=== PATIENT | female | born 1980 | race Caucasian/White ===

== ENCOUNTER 2021-12-21 09:19 | Outpatient (CLI) | payer MEDICARE, SELFPAY ==
--- NOTE | ~2021-12-21 | US_ITS ---
EXAMINATION: US OB <=14 wk fetus w TV DATE: 12/21/2021 10:17 INDICATION: Threatened during first trimester TECHNIQUE: Real-time pelvic ultrasound utilizing both a transvaginal and transabdominal probe was pe rformed. The interpreting radiologist was not present for the study. COMPARISON: None. FINDINGS: The uterus measures 14.0 x 7.3 x 10.2 cm. There is an intrauterine gestational sac. There is a singl e likely pole with 4 mm crown-rump length measurement, which correlates with an estimated gesta tional age of 6 weeks and 1 days. The mean sac diameter of 3.7 cm would correlate with an estimated g estational age of 9 weeks and 0 days. No evident heart heart motion identified on cine grayscal e imaging however M-mode Doppler images were not obtained. The right and left ovaries are not visuali zed. There is no free fluid in the pelvis. IMPRESSION: 1. Intrauterine gestational sac with 4 mm potential pole which would correlate with a gestation al age by ultrasound of 6 weeks 1 day. There is no discernible heart motion which along with th e relative discordant large size of the gestational sac raises concern for but is not diagnostic for failed and differential still includes a viable early . Recommend continued follow -up with serial beta-hCG levels and consider repeat ultrasound as clinically indicated. Reviewed, dictated and finalized at location B. IMPRESSION: 1. Intrauterine gestational sac with 4 mm potential pole which would gabe elate with a gestational age by ultrasound of 6 weeks 1 day. There is no discer nible heart motion which along with the relative discordant large size of the gestational sac raises concern for but is not diagnostic for failed pregna ncy and differential still includes a viable early . Recommend continu ed follow-up with serial beta-hCG levels and consider repeat ultrasound as clin ically indicated.
== END 2021-12-21 09:20 | disposition home or self-care (01) ==
LOC: ANHIMG 09:23
PROVIDERS: PCP Student in an Organized Health Care Education/Training Program; Visit Provider Student in an Organized Health Care Education/Training Program
DX: O20.0 Threatened abortion (principal)
CPT/HCPCS: 76801; 76817

== ENCOUNTER 2021-12-22 16:33 | Day surgery (SDC) | payer MEDICARE, SELFPAY ==
[2021-12-22] VITALS (7 sets, daily range): BP systolic 127–160; BP diastolic 60–96; PULSE 72–88; RESP 12–20; TEMP 36.7–36.9; O2SAT 98–100
--- NOTE | ~2021-12-22 | US_ITS ---
EXAMINATION: US OB <=14 wk fetus w TV INDICATION: vaginal bleeding TECHNIQUE: Sonography of the pelvis was performed by transabdominal and transvaginal techniques. COMPARISON: 12/21/2021. RESULT: Uterus: Orientation: Anteverted. 11.3 x 6.6 x 8 cm. Myometrium: homogeneous echogenicity. Heterogene ously echogenic, avascular material in the endometrial cavity of the lower uterine segment and the ce rvical canal. Gestation: - Intrauterine gestational sac: Not seen. - Embryo: Not seen. - Right ovary: Not visualized. Left ovary: Not visualized. Pelvis free fluid: None. IMPRESSION: failure. No intrauterine gestation or viable fetus detected. Heterogeneous material in the endometrial cavity of the lower uterine segment and cervix, likely representing clot and products of conception ( in progress). Ovaries not visualized. Reviewed, dictated and finalized at location K. IMPRESSION: failure. No intrauterine gestation or viable fetus detected. Heteroge neous material in the endometrial cavity of the lower uterine segment and cervi x, likely representing clot and products of conception ( in progress). Ovaries not visualized.
[2021-12-22 16:56] LABS: Basophils Percent Auto 0.3 % (0.2-1.2); Eosinophils Absolute Auto 0.2 K/mm3 (0-0.3); Eosinophils Percent Auto 1.1 % (0-4.4); Hematocrit 38.6 % (37.0-47.0); Hemoglobin 12.4 g/dL (12.0-15.0); Immature Granulocyte Absolute 0.07 K/mm3 (0.00-0.031); Immature Granulocyte Percent A 0.5 % (0-0.5); Lymphocytes Absolute Auto 3.36 K/mm3 (0.9-3.2); Lymphocytes Percent Auto 23.8 % (18.3-44.2); Mean Corpuscular HGB Conc 32.1 g/dl (32-36); Mean Corpuscular Hemoglobin 24.8 pg (26-34); Mean Corpuscular Volume 77.2 fl (80-100); Mean Platelet Volume 10.6 fl (7.4-10.4); Monocytes Absolute Auto 0.7 K/mm3 (0.1-0.6); Monocytes Percent Auto 4.7 % (2.6-8.5); Neutrophils Absolute Auto 9.8 K/mm3 (1.3-6.7); Neutrophils Percent Auto 69.6 % (45.5-73.1); Platelet Count Result 399 k/mm3 (150-375); Red Cell Distribution Width 15.7 % (11.5-14.5); White Blood Count 14.1 K/mm3 (4.5-10.0)
--- NOTE | 2021-12-22 17:44 | ED.FEMALEGU ---
HPI - Female Genitourinary General Chief complaint: Vaginal Bleeding Stated complaint: miscarriage, 12 weeks preg, abd pain Time Seen by Provider: 12/22/21 17:44 Source: patient Mode of arrival: ambulatory Limitations: no limitations History of Present Illness HPI Narrative: The patient is a 41-year-old female with a history of anemia, diabetes, G2, P1 currently 12 weeks dated by last menstrual period, presenting to the emergency department for evaluation of pelvic pain and vaginal bleeding. Patient reports onset of pelvic pain and vaginal bleeding 2 days ago. Patient reports heavy vaginal bleeding, significant cramping that is aching, severe in nature in the lower abdomen. Patient reports nausea, feeling slightly lightheaded in regards to the pain. Patient denies brisk bleeding, reports bleeding has been heavy throughout the day. Not soaking through a pad per hour, but at times she has intermittently bled through her pants. She reports mild lightheadedness. She denies chest pain or shortness of breath. She reports feeling quite anxious and nervous. Patient states that she did have an ultrasound yesterday that was done outpatient that showed that her dates did not correspond to her last menstrual period. Patient's EMPLOYMENT DIRECTOR is Dr. Stoddard. Related Data Home Medications Medication Instructions Recorded Confirmed calcium carbonate 200 mg calcium 200 mg PO BID 12/17/21 (500 mg) chewable tablet (Tums) vitamin-ferrous fumarate 1 cap PO DAILY 12/17/21 65 mg iron-folic acid 1 mg capsule Allergies Allergy/AdvReac Type Severity Reaction Status Date / Time No Known Allergies Allergy Verified 12/17/21 10:50 [facility] Past Medical History Medical History (Updated 12/22/21 @ 19:15 by Rachele Rosado MD) Anemia iron infusions in past Anxiety and depression Arthritis Asymptomatic varicose veins Bowel disease (~1979) Duplicated bowel cyst removed as baby 17 days old Diabetes Gestational diabetes History of PCOS Hyperlipidemia Morbid obesity with BMI of 50.0-59.9, adult Suppression of menstruation Surgical History Surgical History Delivery by section (02/01/13) primary c/s failure to dilate due to scar tissue on cervix History of gynecological procedure (~2000) cryo on cervix History of tonsillectomy History of uvulopalatopharyngoplasty S/P gastric sleeve procedure (~07/2020) Family History Family History Mother Hypertension High cholesterol Diabetes mellitus Other Breast cancer maternal aunt Grandparent Lung cancer paternal grandmother Acute myocardial infarction maternal grandmother Social History Social History (Updated 12/17/21 @ 11:01 by Mary Romero [facility]) Smoking status: Never smoker Alcohol intake: never Substance use: former Substance use type: marijuana Last use: 2020 Additional living arrangements comments: single Additional occupation/education comments: disabled Gender identity (if verbalized by the patient): Female Sexual Orientation (if Verbalized by the Patient): Straight or Heterosexual Exam Narrative: GENERAL: Awake, alert, conversant, uncomfortable appearing HEAD: Normocephalic, atraumatic. EYES: PERRLA and EOMI. ENT: Nares clear, no rhinorrhea or epistaxis. Mucous membranes moist. NECK: Supple. CHEST: No respiratory distress, breathing even and non labored HEART: Regular rate, sinus rhythm ABDOMEN: Obese, non distended, tender in the suprapubic area Pelvic exam: Labia majora and minora normal without lesions. Vagina with blood. No cervical motion tenderness. No adnexal tenderness or fullness bilaterally. EXTREMITIES: Normal range of motion. No edema. SKIN: Warm, dry, no rash. NEURO:No focal deficits. Alert and oriented x3 Course Vital Signs Vital signs: Vital Signs Temperatu
--- NOTE | 2021-12-22 17:44 | PC.NURSE ---
heart tones canceled as patient is experiencing large amount of bleeding and suspected misscarriage
[2021-12-22] MEDS: ONDANSETRON INJ 4 MG/2 ML VIAL (18:16)
[2021-12-22] MEDS: MORPHINE SULFATE (*CRX) 4 MG/ML INJ (18:16)
--- NOTE | 2021-12-22 18:34 | PM.IMHP ---
H&P: HPI History of Present Illness Date/Time: 12/22/21 18:34 41-year-old female 2 para 1001 presents to emergency room this evening with heavy vaginal bleeding cramping clotting and passing of tissue. Patient has continued to bleed and therefore we will proceed with suction curettage. She has had an ultrasound which showed nonviable prior to this bleeding, no repeat ultrasound has been performed today. Chief Complaint: Incomplete miscarriage Review of Systems Review of Systems: All systems reviewed & are unremarkable except as noted in HPI and below PMFSH Past Medical History Medical History Anemia iron infusions in past Anxiety and depression Arthritis Asymptomatic varicose veins Bowel disease (~1979) Duplicated bowel cyst removed as baby 17 days old Diabetes Gestational diabetes History of PCOS Suppression of menstruation Surgical History Surgical History Delivery by section (02/01/13) primary c/s failure to dilate due to scar tissue on cervix History of gynecological procedure (~2000) cryo on cervix History of tonsillectomy History of uvulopalatopharyngoplasty S/P gastric sleeve procedure (~07/2020) Family History Family History Mother Hypertension High cholesterol Diabetes mellitus Other Breast cancer maternal aunt Grandparent Lung cancer paternal grandmother Acute myocardial infarction maternal grandmother Social History Social History (Updated 12/17/21 @ 11:01 by Mary Romero [facility]) Smoking status: Never smoker Alcohol intake: never Substance use: former Substance use type: marijuana Last use: 2020 Additional living arrangements comments: single Additional occupation/education comments: disabled Gender identity (if verbalized by the patient): Female Sexual Orientation (if Verbalized by the Patient): Straight or Heterosexual Meds Home Medications and Allergies Home Medications Medication Instructions Recorded Confirmed Type calcium carbonate 200 mg calcium 200 mg PO BID 12/17/21 History (500 mg) chewable tablet (Tums) vitamin-ferrous fumarate 1 cap PO DAILY 12/17/21 History 65 mg iron-folic acid 1 mg capsule Allergies Allergy/AdvReac Type Severity Reaction Status Date / Time No Known Allergies Allergy Verified 12/17/21 10:50 Vital Signs Vital Signs - 24 hr 12/22/21 16:34 Temperature 98.1 F Pulse Rate 87 Respiratory Rate 18 Blood Pressure 160/92 H Pulse Oximetry 98 Oxygen Delivery Room Air Exam Const: General: cooperative; No comfortable Resp: Effort & Inspection: normal respiratory effort Auscultation: clear to auscultation bilaterally Cardio: Rate: regular rate Rhythm: regular rhythm GI: Inspection: normal to inspection Auscultation: normal bowel sounds : Speculum Exam - Vagina: normal appearance of the vagina ( blood in vault) Speculum Exam - Cervix: Cervical os open Bimanual exam- vagina & uterus: enlarged ( 8-10 week size) Bimanual Exam- Adnexa, other: normal adnexae H&P: Results Labs Labs: Short CBC 12/22/21 Range/Units 16:45 WBC 14.1 H (4.5-10.0) K/mm3 Hgb 12.4 (12.0-15.0) g/dL Hct 38.6 (37.0-47.0) % Plt Count 399 H (150-375) k/mm3 Assessment and Plan Assessment and plan (1) Incomplete miscarriage: Code(s): O03.4 - Incomplete spontaneous without complication Status: Acute Plan 1st trimester incomplete miscarriage with continued bleeding and pain will be managed with suction curettage.
--- NOTE | 2021-12-22 18:37 | WPDHPUPDATE1 ---
History and Physical Update Update Date/Time: 12/22/21 18:37 History and Physical has been reviewed, including an updated exam of the patient. There are NO changes in the patient's condition. Risks, benefits, and alternatives have been discussed and questions answered. Patient agrees to proceed with procedure.
--- NOTE | 2021-12-22 18:49 | WPDANESEPPF ---
Anes - Initial Pre Proc Eval Date/Time: 12/22/21 18:49 Pre Op Diagnosis: miscarriage, 12 weeks preg, abd pain Patient Data Age: 41 Gender: F Height: 1.57 m Weight: 147 kg Last Vital Signs Temp 36.7 C 12/22/21 16:34 Pulse 87 12/22/21 16:34 Resp 18 12/22/21 16:34 BP 160/92 H 12/22/21 16:34 Pulse Ox 98 12/22/21 16:34 O2 Del Method Room Air 12/22/21 16:34 Allergies Allergy/AdvReac Type Severity Reaction Status Date / Time No Known Allergies Allergy Verified 12/17/21 10:50 Home Medications Medication Instructions Recorded Confirmed Type calcium carbonate 200 mg calcium 200 mg PO BID 12/17/21 History (500 mg) chewable tablet (Tums) vitamin-ferrous fumarate 1 cap PO DAILY 12/17/21 History 65 mg iron-folic acid 1 mg capsule Laboratory Tests 12/22/21 12/22/21 12/22/21 16:45 16:45 16:45 WBC 14.1 K/mm3 H K/mm3 (4.5-10.0) RBC 5.00 M/mm3 M/mm3 (4.2-5.4) Hgb 12.4 g/dL g/dL (12.0-15.0) Hct 38.6 % % (37.0-47.0) MCV 77.2 fl L fl (80-100) MCH 24.8 pg L pg (26-34) MCHC 32.1 g/dl g/dl (32-36) RDW 15.7 % H % (11.5-14.5) Plt Count 399 k/mm3 H k/mm3 (150-375) MPV 10.6 fl H fl (7.4-10.4) Immature Gran % (Auto) 0.5 % % (0-0.5) Neut % (Auto) 69.6 % % (45.5-73.1) Lymph % (Auto) 23.8 % % (18.3-44.2) [place] % (Auto) 4.7 % % (2.6-8.5) Eos % (Auto) 1.1 % % (0-4.4) Baso % (Auto) 0.3 % % (0.2-1.2) Lymph # (Auto) 3.36 K/mm3 H K/mm3 (0.9-3.2) [place] # (Auto) 0.7 K/mm3 H K/mm3 (0.1-0.6) Eos # (Auto) 0.2 K/mm3 K/mm3 (0-0.3) Baso # (Auto) 0.0 K/mm3 K/mm3 (0.0-0.1) Abs Immat Gran (auto) 0.07 K/mm3 H K/mm3 (0.00-0.031) Absolute Neuts (auto) 9.8 K/mm3 H K/mm3 (1.3-6.7) Absolute Nucleated RBC 0.0 K/mm3 K/mm3 (0.0-0.012) Nucleated RBC % 0.0 % % (0.0-0.2) PT INR APTT Sodium Potassium Chloride Carbon Dioxide Anion Gap BUN Creatinine Estim Creat Clear Calc Estimated GFR Glucose Calcium Total Bilirubin AST ALT Alkaline Phosphatase Total Protein Albumin Beta HCG, Quant 8893.20 mIU/ML mIU/ML Blood Type O Positive Antibody Screen Negative Screen Not Reportable Baby's Blood Type Not Reportable Baby's CHER Not Reportable Doses of RhIg Required 0 12/22/21 12/22/21 16:45 16:45 WBC RBC Hgb Hct MCV MCH MCHC RDW Plt Count MPV Immature Gran % (Auto) Neut % (Auto) Lymph % (Auto) [place] % (Auto) Eos % (Auto) Baso % (Auto) Lymph # (Auto) [place] # (Auto) Eos # (Auto) Baso # (Auto) Abs Immat Gran (auto) Absolute Neuts (auto) Absolute Nucleated RBC Nucleated RBC % PT Pending INR Pending APTT Pending Sodium Pending Potassium Pending Chloride Pending Carbon Dioxide Pending Anion Gap Pending BUN Pending Creatinine Pending Estim Creat Clear Calc Pending Estimated GFR Pending Glucose Pending Calcium Pending Total Bilirubin Pending AST Pending ALT Pending Alkaline Phosphatase Pending Total Protein Pending Albumin Pending Beta HCG, Quant Blood Type Antibody Screen Screen
[2021-12-22 18:51] LABS: Alanine Aminotransferase 13 U/L (6-35); Albumin Level 4.3 g/dL (3.5-5.1); Alkaline Phosphatase 75 U/L (38-126); Anion Gap 14 mmol/L (8-16); Aspartate Amino Transferase 17 U/L (14-36); Bilirubin,Total 0.2 mg/dL (0.2-1.3); Blood Urea Nitrogen 9 mg/dL (7-17); Calcium 9.7 mg/dL (8.4-10.2); Carbon Dioxide 23 mmol/L (22-30); Chloride 103 mmol/L (98-107); Estimated CRCL calculation 146 ml/min; Estimated Glomerular Filt Rate > 60; Glucose 120 mg/dL (65-110); Potassium 3.8 mmol/L (3.4-5.0); Sodium 140 mmol/L (137-145)
[2021-12-22 18:55] LABS: Prothrombin Time 13.1 Seconds (11.1-14.7)
[2021-12-22 18:56] LABS: Partial Thromboplastin Time 30.8 SECONDS (22.3-36.8)
[2021-12-22] MEDS: LACTATED RINGERS 1,000 ML 30 ML IV CONT (20:00)
--- NOTE | 2021-12-22 20:03 | W.PM.PROC2 ---
Procedure Note - Detailed Date of Procedure 12/22/21 Pre-op Diagnosis First-trimester incomplete miscarriage Post-op Diagnosis Same Procedure Performed Suction curettage Surgeon Bertin Luna MD Anesthesia MAC Findings Moderate amount of retained products of conception. Description of Procedure Patient was prepped and draped usual manner for this procedure. Cervix was dilated to allow 10mm suction curette to be placed and this was placed with a moderate amount of retained products of conception. Sharp curette throughout the entire the cavity with no further tissue noted. 9mm suction curette was then placed with small clotting and small remnant of tissue removed. There was no significant bleeding at this point and patient was sent to recovery room in stable condition. Estimated Blood Loss 250 Drains No Packing No Pathology Yes Complications No immediate complications Condition Stable Disposition PACU [facility] Billing Surgery - Charge Forward: Surgery Billing
--- NOTE | 2021-12-22 20:08 | PM.OBDSVD ---
DS: Admitting Diagnosis Discharge Date 12/22/21 Admitting Diagnosis First-trimester incomplete OB - DS: Summary OB Procedures : None OB Procedures Intrapartum: Other OB Procedures: : None Peripartum Data Procedures: Procedures Operation Date: 12/22/21 19:30 Actual Procedure Side Surgeon p D&C Suction and Sharp Not Applicable Bertin Luna MD Time Spent with Patient Time attestation: Total time spent providing and/or coordinating discharge services: DS: Data Data Completed and Pending Pending studies at discharge: Pending at discharge 12/22/21 19:51 Surgical [PTH] Routine Labs on day of discharge: Labs from last 24 hours 12/22/21 12/22/21 12/22/21 16:45 16:45 16:45 WBC RBC Hgb Hct MCV MCH MCHC RDW Plt Count MPV Immature Gran % (Auto) Neut % (Auto) Lymph % (Auto) [place] % (Auto) Eos % (Auto) Baso % (Auto) Lymph # (Auto) [place] # (Auto) Eos # (Auto) Baso # (Auto) Abs Immat Gran (auto) Absolute Neuts (auto) Absolute Nucleated RBC Nucleated RBC % PT 13.1 INR 1.0 APTT 30.8 Sodium 140 Potassium 3.8 Chloride 103 Carbon Dioxide 23 Anion Gap 14 BUN 9 Creatinine 0.60 L Estim Creat Clear Calc 146 Estimated GFR > 60 Glucose 120 H Calcium 9.7 Total Bilirubin 0.2 AST 17 ALT 13 Alkaline Phosphatase 75 Total Protein 8.0 Albumin 4.3 Beta HCG, Quant Blood Type O Positive Antibody Screen Negative Screen Not Reportable Baby's Blood Type Not Reportable Baby's CHER Not Reportable Doses of RhIg Required 0 12/22/21 12/22/21 16:45 16:45 WBC 14.1 H RBC 5.00 Hgb 12.4 Hct 38.6 MCV 77.2 L MCH 24.8 L MCHC 32.1 RDW 15.7 H Plt Count 399 H MPV 10.6 H Immature Gran % (Auto) 0.5 Neut % (Auto) 69.6 Lymph % (Auto) 23.8 [place] % (Auto) 4.7 Eos % (Auto) 1.1 Baso % (Auto) 0.3 Lymph # (Auto) 3.36 H [place] # (Auto) 0.7 H Eos # (Auto) 0.2 Baso # (Auto) 0.0 Abs Immat Gran (auto) 0.07 H Absolute Neuts (auto) 9.8 H Absolute Nucleated RBC 0.0 Nucleated RBC % 0.0 PT INR APTT Sodium Potassium Chloride Carbon Dioxide Anion Gap BUN Creatinine Estim Creat Clear Calc Estimated GFR Glucose Calcium Total Bilirubin AST ALT Alkaline Phosphatase Total Protein Albumin Beta HCG, Quant 8893.20 Blood Type Antibody Screen Screen Baby's Blood Type Baby's CHER Doses of RhIg Required Discharge Plan Discharge Clinical Impression: Vaginal bleeding, Threatened , Missed , Incomplete miscarriage Patient Disposition: Home, Self-Care Condition: Stable Prescriptions: New ibuprofen 800 mg tablet 800 mg PO TID PRN (Reason: pain) Qty: 20 0RF Continued calcium carbonate [Tums] 200 mg calcium (500 mg) tablet,chewable 200 mg PO BID vit-iron fum-folic ac 65 mg iron- 1 mg capsule 1 cap PO DAILY Follow-up/Referrals: Wes,Ish Rick MD [Primary Care Provider] - Stand Alone Forms: General Discharge Information
--- NOTE | 2021-12-22 20:31 | SUR.PHASEI ---
2030 - pt is O positive.
--- NOTE | 2021-12-24 07:45 | PM.OBTRLD ---
OB - Triage/Final Diagnosis Visit Information Reason for evaluation: other ( 1st trimester incomplete miscarriage, admitted for suction curettage) Comments/Additional reasons for admission: I have assessed the risk for this patient, Chela Rose, and determined that she would benefit from observation care. Evaluation Laboratory results: Laboratory Tests 12/22/21 12/22/21 12/22/21 16:45 16:45 16:45 WBC 14.1 H RBC 5.00 Hgb 12.4 Hct 38.6 MCV 77.2 L MCH 24.8 L MCHC 32.1 RDW 15.7 H Plt Count 399 H MPV 10.6 H Immature Gran % (Auto) 0.5 Neut % (Auto) 69.6 Lymph % (Auto) 23.8 [place] % (Auto) 4.7 Eos % (Auto) 1.1 Baso % (Auto) 0.3 Lymph # (Auto) 3.36 H [place] # (Auto) 0.7 H Eos # (Auto) 0.2 Baso # (Auto) 0.0 Abs Immat Gran (auto) 0.07 H Absolute Neuts (auto) 9.8 H Absolute Nucleated RBC 0.0 Nucleated RBC % 0.0 PT INR APTT Sodium Potassium Chloride Carbon Dioxide Anion Gap BUN Creatinine Estim Creat Clear Calc Estimated GFR Glucose Calcium Total Bilirubin AST ALT Alkaline Phosphatase Total Protein Albumin Beta HCG, Quant 8893.20 Blood Type O Positive Antibody Screen Negative Screen Not Reportable Baby's Blood Type Not Reportable Baby's CHER Not Reportable Doses of RhIg Required 0 12/22/21 12/22/21 16:45 16:45 WBC RBC Hgb Hct MCV MCH MCHC RDW Plt Count MPV Immature Gran % (Auto) Neut % (Auto) Lymph % (Auto) [place] % (Auto) Eos % (Auto) Baso % (Auto) Lymph # (Auto) [place] # (Auto) Eos # (Auto) Baso # (Auto) Abs Immat Gran (auto) Absolute Neuts (auto) Absolute Nucleated RBC Nucleated RBC % PT 13.1 INR 1.0 APTT 30.8 Sodium 140 Potassium 3.8 Chloride 103 Carbon Dioxide 23 Anion Gap 14 BUN 9 Creatinine 0.60 L Estim Creat Clear Calc 146 Estimated GFR > 60 Glucose 120 H Calcium 9.7 Total Bilirubin 0.2 AST 17 ALT 13 Alkaline Phosphatase 75 Total Protein 8.0 Albumin 4.3 Beta HCG, Quant Blood Type Antibody Screen Screen Baby's Blood Type Baby's CHER Doses of RhIg Required
== END 2021-12-22 21:17 | disposition home or self-care (01) ==
LOC: ANHED 19:15 → ANHSURGERY 12-23 10:44
PROVIDERS: Emergency Provider Emergency Medicine; PCP Internal Medicine; Visit Provider Obstetrics & Gynecology
PROC: (CPT 59812; principal; 2021-12-22 19:30)
DX: O03.4 Incomplete spontaneous abortion without complication (principal); Z3A.12 12 weeks gestation of pregnancy
CPT/HCPCS: 59812; 36415; 76801; 76817; 80053; 84702; 85025; 85461; 85610; 85730; 88305; J1100; J2270; J2405; J2704; J3010; J7120